=== PATIENT | female | born 1945 | race African-American/Black ===

== ENCOUNTER → 2016-12-01 | Outpatient (CLI) | payer OTHER ==
[~2016-12-01] MED LIST: CALCIUM + D 6001 TA1 PO; COZAAR PO; MULTI-VITAMIN1 EAC1 PO; PREMARIN PO; TRIAMTERENE-HC1 EAC1 PO; VIVELLE1 PATCH.B1 TD; VOLTAREN75 MG PO; [UNRECOGNIZED DRUG - OTHER] VAG
--- NOTE | ~2016-12-01 | MY11 ---
[facility] A Service [facility] RADIOLOGY TEXT RESULTS PATIENT: FERNANDA CHANEY LOCATION: [facility] : 47 UNIT #: [id number] AGE: [address]: Ema Crain MD SEX: F ORDER DR: [id number] [facility]. [place], [place] [address] [id number] MR#: [id number] Acc #: [id number] NAME: FERNANDA CHANEY. : 1945 SEX: F STUDY DATE/TIME: 12/01/2016 14:51 UNIT: [facility] ROOM: STUDY DESCRIPTION: MY Mammogram Screening Dig Jose G Attending Physician: Ema Crain M.D. Ordering Physician: Ema Crain M.D. Primary Care Physician: Ema Crain M.D. MEDICAL IMAGING REPORT This report is preliminary unless electronic signature is present EXAM Bilateral digital screening mammogram with CAD. INDICATION Routine screening. No current complaints. No family history of breast cancer. COMPARISON STUDY 11/27/15, 11/08/14, 11/07/13. TECHNIQUE MLO and CC digital views of each breast were obtained. The exam was reviewed with FDA-approved CAD device. FINDINGS The breasts are almost entirely fatty replaced. There are no masses or abnormal calcifications. IMPRESSION No change. No evidence of malignancy. BIRADS category 1N. Patients over the age of 40 are entered into a reminder system with target due date for the next mammogram. A result letter will also be sent to the patient. BIRADS: 1 Negative. Dictated by... Clniton Valdez M.D. THIS IS AN ELECTRONICALLY VERIFIED REPORT [facility] A [facility] RADIOLOGY TEXT RESULTS PATIENT: FERNANDA CHANEY LOCATION: [facility] : 47 UNIT #: [id number] AGE: [address]: Ema Crain MD SEX: F ORDER DR: Clinton Valdez M.D. at 12/02/2016 6:27 AM FEL/jt TD: 12/01/2016 20:29 JOB #: [id number] MEDICAL IMAGING REPORT Page 1 of 1 COPY
== END | disposition home or self-care (01) ==
LOC: CWCC 11-23 14:45
DX: Z12.31 Encounter for screening mammogram for malignant neoplasm of breast (principal)
CPT/HCPCS: G0202